=== PATIENT | female | born 1955 | race Caucasian/White ===

== ENCOUNTER 2017-05-05 23:09 | Observation (INO) | payer OTHER, SELFPAY ==
[2017-05-05 23:11] VITALS: BP 154/75; PULSE 95; RESP 22; TEMP 35.9; O2SAT 100; BMI 22.6
[2017-05-06] VITALS (13 sets, daily range): BP systolic 112–181; BP diastolic 55–99; PULSE 52–110; RESP 12–18; TEMP 36.4–37.1; O2SAT 94–100; BMI 22.7; BMI 22.8
[2017-05-06] MEDS: Ondansetron 4 MG/2 ML Vial IV ×2 (00:45→19:50)
[2017-05-06] MEDS: 0.9% Normal Saline 1,000 ML 1000 ML IV (00:45)
[2017-05-06 00:49] LABS: Absolute Lymphocyte Count 1.03 X10^3/ul (0.83-4.51); Absolute Neutrophil Count 10.4 X10^3/uL (2.0-7.7); Basophil# 0.01 X10^3/uL; Basophil% 0.1 % (0-1); Eosinophil# 0.01 X10^3/uL; Eosinophils% 0.1 % (0-5); Hematocrit 38.8 % (37-47); Hemoglobin 13.3 g/dl (12.0-15.0); Lymphocyte # 1.03 X10^3/ul (4.0); Lymphocyte % 8.6 % (19-41); Mean Corp Hgb Conc 34.3 g/gl (32-36); Mean Corpuscular Hgb 31.1 pg (27.0-32.0); Mean Corpuscular Volume 90.9 fL (81-99); Mean Platelet Vol. 10.8 fl (6.2-12.0); Neutrophil # 10.36 X10^3/uL (2.7-7.7); Platelet Count 256 K/mm3 (150-450); RBC Distribution Width CV 12.6 % (11.6-14.6); RBC Distribution Width SD 41.7 fl (35.1-43.9); Red Blood Count 4.27 M/mm3 (4.2-5.4)
[2017-05-06 00:53] LABS: POSITIVE COUNT NO; POSITIVE DIFFERENTIAL NO; POSITIVE MORPHOLOGY NO
[2017-05-06 00:59] LABS: ALB/GLOB Ratio 1.5 RATIO (0.9-2.4); AST(SGOT) 22 U/L (15-37); Alanine Aminotransfer ALT/SGPT 27 U/L (13-56); Albumin, Serum 4.3 g/dL (3.2-5.0); Alkaline Phosphatase 70 U/L (45-117); Anion Gap 21 (5-15); BUN 6 mg/dL (7-18); BUN/Creat Ratio 6.4 RATIO (10-20); Calcium,Total 9.7 mg/dL (8.5-10.1); Chloride 96 mmol/L (98-107); Creatinine, Serum 0.93 mg/dL (0.55-1.02); EST Glomerular Filtration Rate 64 mL/min (>60); Est Glom Filt Rate - Afr Amer 78 mL/min (>60); Estimated Creatinine Clearance 46.12 ml/min; Globulin 2.8 g/dL (2.2-4.2); Glucose 194 mg/dL (74-106); Lipase 65 U/L (73-393); Potassium 3.6 mmol/L (3.5-5.1); Protein, Total 7.1 g/dL (6.4-8.2); Sodium Level 132 mmol/L (136-145)
--- NOTE | 2017-05-06 02:14 | CT_ITS ---
STUDY: CT ABDOMEN AND PELVIS WITH CONTRAST REASON FOR EXAM: Female, 62 years old. Abdominal pain, vomiting and fever since 8:00 PM. Dizziness, recent weight loss, elevated WBC. Patient was to have cholecystectomy today. History of GERD, HLD, diverticulitis, appendectomy, hysterectomy. RADIATION DOSAGE (If Supplied By Facility): CTDIvol = ( 9.75 ) mGy, DLP = ( 414.29 ) mGycm TECHNIQUE: Transaxial 3.75 mm images were obtained from the dome of the diaphragm to the symphysis pubis without oral contrast. 100 ml of Isovue 300 contrast was administered. Sagittal and coronal images were reconstructed. Individualized dose optimization techniques were used for this CT. COMPARISON: None. FINDINGS: The visualized lung bases are unremarkable. The visualized portions of the heart are within normal limits. Normal liver. Distended gallbladder without visualized gallbladder wall thickening. There may be sludge. Normal extrahepatic biliary system. Normal spleen. Normal pancreas. Normal bilateral adrenal glands. Normal right kidney. Few millimeter low attenuation changes in the left renal cortex is too small to characterize and may represent tiny cysts. Normal visualized stomach. Normal small intestine. There are scattered predominantly sigmoid colonic diverticula consistent with diverticulosis. The transverse to rectal: Is decompressed, there is no overt wall thickness or pericolonic inflammation. There is non-visualization of the appendix. Normal abdominal aorta. Normal inferior vena cava. Normal retroperitoneum. Normal urinary bladder. There is absence of the uterus consistent with a prior hysterectomy. There is a small umbilical hernia containing fat. There are diffuse degenerative changes of the visualized lumbar spine and levoscoliosis of the lower lumbar spine CT/Abdomen/Pelvis W IV Cont ONLY IMPRESSION: There is no abscess, collection, perforation or obstruction. Scattered colonic diverticulosis with significant sigmoid diverticulosis. Decompressed colon, no overt diverticulitis detected. Acute gallbladder pathology not detected on submitted images. Suspect tiny left renal cysts, this can be verified with ultrasound as needed. Other nonacute findings as outlined above. Electronically Signed: Georgina Shetty MD at 5:07 EST , Service support ,
--- NOTE | 2017-05-06 03:18 | ED.VISSUMM ---
- ER Visit Summary Date of Service: 05/06/17 Chief Complaint: Nausea and vomiting History of Present Illness: The patient is a 62 F nausea vomiting since 8 PM last night. States followed by Dr. Davies, had a recent abnormal HIDA scan diagnosed from [facility]. Saw surgery and they are, referred over here due to hospital closure. States she ate baby food. She has a plan outpatient elective cholecystectomy for tomorrow. No fevers. Vomiting too many to count. No hematemesis. History of GERD and hypercholesterolemia. She has been cleared for surgery per patient. States she has had ongoing abdominal pain since January when symptoms started, symptoms in the upper epigastric region. History of hysterectomy. Physical Examination: General: Alert and oriented ?3, no acute distress HEENT: Normocephalic, atraumatic. Dry mucosa membranes Neck: supple, nontender. Cardiovascular: Regular rate and rhythm, no murmurs Respiratory: Normal breath sounds, symmetric, no distress Abdomen: Soft, mild tenderness epigastric and right upper quadrant without guarding or rebound nondistended. Negative McBurney's. Extremities: Nontender, no edema, pulses intact ?4 Neuro: no focal neurological deficits. Test Results: Labs with a white count of 12. Lipase 65, liver enzymes total bili 1.2. Creatinine 0.93. Emergency Department Course and Treatment: Patient given IV fluids, Zofran. Labs note a white count of 12, total bili 1.2. Symptoms improved with treatment. I did discuss with surgeon, Dr. Davies, states will admit for planned surgery tomorrow of her cholecystectomy due to her symptoms. He did request a CT with IV contrast for further evaluation due to her white count. Further discussion with the patient, her hysterectomy did include an appendectomy. She continued IV fluids, kept n.p.o. No vomiting since treatment. Any abnormal results will be relayed to surgery. Treatment Plan: [] Disposition: Admission Impression: 1. Nausea and vomiting 2. Abdominal pain 3. Reported abnormal HIDA This note was generated with [employer] dictation software. It may contain incorrect words, spelling, and punctuation that were not noted in review of the chart prior to signing ED Disposition - Plan for ED Patient: Disposition: Acute Care Hospital [facility] Chief Complaint: Nausea/Vomiting Diagnosis: Nausea and vomiting, Abdominal pain, Abnormal biliary HIDA scan
--- NOTE | 2017-05-06 03:22 | ED.DCSUM_ITS ---
- ER Visit Summary Date of Service: 05/06/17 Chief Complaint: Nausea and vomiting History of Present Illness: The patient is a 62 F nausea vomiting since 8 PM last night. States followed by Dr. Davies, had a recent abnormal HIDA scan diagnosed from [facility]. Saw surgery and they are, referred over here due to hospital closure. States she ate baby food. She has a plan outpatient elective cholecystectomy for tomorrow. No fevers. Vomiting too many to count. No hematemesis. History of GERD and hypercholesterolemia. She has been cleared for surgery per patient. States she has had ongoing abdominal pain since January when symptoms started, symptoms in the upper epigastric region. History of hysterectomy. Physical Examination: General: Alert and oriented ?3, no acute distress HEENT: Normocephalic, atraumatic. Dry mucosa membranes Neck: supple, nontender. Cardiovascular: Regular rate and rhythm, no murmurs Respiratory: Normal breath sounds, symmetric, no distress Abdomen: Soft, mild tenderness epigastric and right upper quadrant without guarding or rebound nondistended. Negative McBurney's. Extremities: Nontender, no edema, pulses intact ?4 Neuro: no focal neurological deficits. Test Results: Labs with a white count of 12. Lipase 65, liver enzymes total bili 1.2. Creatinine 0.93. Emergency Department Course and Treatment: Patient given IV fluids, Zofran. Labs note a white count of 12, total bili 1.2. Symptoms improved with treatment. I did discuss with surgeon, Dr. Davies, states will admit for planned surgery tomorrow of her cholecystectomy due to her symptoms. He did request a CT with IV contrast for further evaluation due to her white count. Further discussion with the patient, her hysterectomy did include an appendectomy. She continued IV fluids, kept n.p.o. No vomiting since treatment. Any abnormal results will be relayed to surgery. Treatment Plan: [] Disposition: Admission Impression: 1. Nausea and vomiting 2. Abdominal pain 3. Reported abnormal HIDA This note was generated with Pron[employer] dictation software. It may contain incorrect words, spelling, and punctuation that were not noted in review of the chart prior to signing ED Disposition - Plan for ED Patient: Disposition: Acute Care Hospital [facility] Chief Complaint: Nausea/Vomiting Diagnosis: Nausea and vomiting, Abdominal pain, Abnormal biliary HIDA scan
[2017-05-06] MEDS: Dextrose 5%-Lactated Ringers 1,000 ML 100 ML IV ×3 (03:31→18:25)
--- NOTE | 2017-05-06 07:59 | PCM.HP.STD ---
Problem List (1) Abdominal pain Status: Acute Qualifiers: Abdominal location: epigastric Qualified Code(s): R10.13 - Epigastric pain History of Present Illness Date of Admission: 05/06/17 The patient is a 62 year old F who has been seen by me previously. She was diagnosed with biliary dyskinesia with a very low ejection fraction of her gallbladder but no gallstones. She was scheduled for elective cholecystectomy on 05/06/2017. She reports the evening of she came down with nausea and vomiting and right upper quadrant and epigastric pain. She presented to the emergency room and she had an elevated white count as well as a slightly elevated bilirubin. She reports that the pain is improved this morning and she has not had any more nausea or vomiting. She complains of no other abdominal pain besides the right upper quadrant and epigastric pain. Past Medical History Allergies morphine Allergy (Unknown, Verified 05/05/17 08:21) Unknown penicillin G Allergy (Unknown, Verified 05/05/17 08:21) Unknown Sulfa (Sulfonamide Antibiotics) Allergy (Unknown, Verified 05/05/17 08:21) Unknown sulfamethoxazole [From Bactrim] Allergy (Unknown, Verified 05/05/17 08:21) Unknown trimethoprim [From Bactrim] Allergy (Unknown, Verified 05/05/17 08:21) Unknown egg Allergy (Verified 05/05/17 23:14) Unknown aspirin Adverse Reaction (Verified 05/05/17 08:21) Upset Stomach ciprofloxacin [From Cipro] Adverse Reaction (Verified 05/05/17 23:14) Rash peanut Adverse Reaction (Verified 05/05/17 23:14) Other Home Medications: Ambulatory Orders Medication Instructions Recorded Pantoprazole Sodium [Protonix] 40 mg PO DAILY 05/06/17 Surgical History: hysterectomy Smoking Status: Never smoker Alcohol: None Drugs: None - *Family History Maternal History Items: No pertinent history Review of Systems Constitutional: Denies: Anorexia, Fever HEENT: Denies: Difficulty Swallowing Cardiovascular: Denies: Chest Pain Respiratory: Denies: Shortness of Breath Gastrointestinal: Reports: Abdominal Pain - Right upper quadrant and epigastric pain., Constipation, Nausea. Denies: Vomiting Genitourinary: Denies: Dysuria Musculoskeletal: Denies: Joint Tenderness Skin: Denies: Dryness, Jaundice Psychiatric: Reports: Anxiety, Depression Hematologic/ Lymphatic: Denies: Anemia VTE Information - Inpt Only VTE Present on Admission: No VTE Mechan Device Prophylaxis: SCD's Patient Problems: Active and Suspected Problems (Last Updated 05/04/17 @ 14:11 by Hilary Varner) Nausea and vomiting (Acute) Abdominal pain (Acute) Abnormal biliary HIDA scan (Acute) - Physical Exam General: Alert, Oriented x3, Cooperative Oral: Moist Mucosa Neck: No JVD Lungs: Normal air movement Cardiovascular: Regular rate, Regular Rhythm Abdomen: Soft, Non-Distended, Tender - She does have some mild right upper quadrant tenderness but no guarding or rebound. Musculoskeletal: No Muscle Wasting Lymphatic: No Cervical, Supraclavicular, or Inguinal Adenopathy Neurological: Cranial nerves II-XII grossly intact Psych/Mental Status: Normal Affect Vital Signs Temp Pulse Resp BP Pulse Ox 98.3 F 80 18 142/55 H 100 05/06/17 03:25 05/06/17 03:25 05/06/17 03:25 05/06/17 03:25 05/06/17 03:25 Oxygen Delivery Method Room Air Weight: 120 lb 8 oz Body Mass Index (BMI) 22.7 Intake and Output for Last 24 Hours 05/04/17 05/05/17 05/06/17 23:59 23:59 23:59 Intake Total 343 / 343 Balance 343 / 343 Clinical Impression(s) from Imaging Studies Abdomen/Pelvis CT 05/06/17 02:14 IMPRESSION: There is no abscess, collection, perforation or obstruction. Scattered colonic diverticulosis with significant sigmoid diverticulosis. Decompressed colon, no overt diverticulitis detected. Acute gallbladder pathology not detected on submitted images. Suspect tiny left renal cysts, this can be verified with ultrasound as needed. Other nonacute findings as outlined above. Electronically Signed: Georgina Shetty MD at 5:07 EST , Service support , Assessment/Plan Active and Suspected Problems (Last Updated 05/04/17 @ 14:11 by Hilary Varner) Nausea and vomiting (Acute) Abdominal pain (Acute) Abnormal biliary HIDA scan (Acute) 62-year-old female with biliary dyskinesia 1. The patient was admitted and I did give her a dose of antibiotics yesterday in case she was developing a calculus acute cholecystitis. I performed a CT scan with IV contrast which did not show any other pathology in the abdomen. There was nonvisualization of the appendix but she does not have any right lower quadrant or umbilical pain. 2. Plan is to continue with laparoscopic cholecystectomy as planned this afternoon. Eric Davies MD Pager: [facility] [address] [place] [address] Office:
--- NOTE | 2017-05-06 08:02 | HP.PCM_ITS ---
Problem List (1) Abdominal pain Status: Acute Qualifiers: Abdominal location: epigastric Qualified Code(s): R10.13 - Epigastric pain History of Present Illness Date of Admission: 05/06/17 The patient is a 62 year old F who has been seen by me previously. She was diagnosed with biliary dyskinesia with a very low ejection fraction of her gallbladder but no gallstones. She was scheduled for elective cholecystectomy on 05/06/2017. She reports the evening of she came down with nausea and vomiting and right upper quadrant and epigastric pain. She presented to the emergency room and she had an elevated white count as well as a slightly elevated bilirubin. She reports that the pain is improved this morning and she has not had any more nausea or vomiting. She complains of no other abdominal pain besides the right upper quadrant and epigastric pain. Past Medical History Allergies morphine Allergy (Unknown, Verified 05/05/17 08:21) Unknown penicillin G Allergy (Unknown, Verified 05/05/17 08:21) Unknown Sulfa (Sulfonamide Antibiotics) Allergy (Unknown, Verified 05/05/17 08:21) Unknown sulfamethoxazole [From Bactrim] Allergy (Unknown, Verified 05/05/17 08:21) Unknown trimethoprim [From Bactrim] Allergy (Unknown, Verified 05/05/17 08:21) Unknown egg Allergy (Verified 05/05/17 23:14) Unknown aspirin Adverse Reaction (Verified 05/05/17 08:21) Upset Stomach ciprofloxacin [From Cipro] Adverse Reaction (Verified 05/05/17 23:14) Rash peanut Adverse Reaction (Verified 05/05/17 23:14) Other Home Medications: Ambulatory Orders Medication Instructions Recorded Pantoprazole Sodium [Protonix] 40 mg PO DAILY 05/06/17 Surgical History: hysterectomy Smoking Status: Never smoker Alcohol: None Drugs: None - *Family History Maternal History Items: No pertinent history Review of Systems Constitutional: Denies: Anorexia, Fever HEENT: Denies: Difficulty Swallowing Cardiovascular: Denies: Chest Pain Respiratory: Denies: Shortness of Breath Gastrointestinal: Reports: Abdominal Pain - Right upper quadrant and epigastric pain., Constipation, Nausea. Denies: Vomiting Genitourinary: Denies: Dysuria Musculoskeletal: Denies: Joint Tenderness Skin: Denies: Dryness, Jaundice Psychiatric: Reports: Anxiety, Depression Hematologic/ Lymphatic: Denies: Anemia VTE Information - Inpt Only VTE Present on Admission: No VTE Mechan Device Prophylaxis: SCD's Patient Problems: Active and Suspected Problems (Last Updated 05/04/17 @ 14:11 by Hilary Varner ) Nausea and vomiting (Acute) Abdominal pain (Acute) Abnormal biliary HIDA scan (Acute) - Physical Exam General: Alert, Oriented x3, Cooperative Oral: Moist Mucosa Neck: No JVD Lungs: Normal air movement Cardiovascular: Regular rate, Regular Rhythm Abdomen: Soft, Non-Distended, Tender - She does have some mild right upper quadrant tenderness but no guarding or rebound. Musculoskeletal: No Muscle Wasting Lymphatic: No Cervical, Supraclavicular, or Inguinal Adenopathy Neurological: Cranial nerves II-XII grossly intact Psych/Mental Status: Normal Affect Vital Signs Temp Pulse Resp BP Pulse Ox 98.3 F 80 18 142/55 H 100 05/06/17 03:25 05/06/17 03:25 05/06/17 03:25 05/06/17 03:25 05/06/17 03:25 Oxygen Delivery Method Room Air Weight: 120 lb 8 oz Body Mass Index (BMI) 22.7 Intake and Output for Last 24 Hours 05/04/17 05/05/17 05/06/17 23:59 23:59 23:59 Intake Total 343 / 343 Balance 343 / 343 Clinical Impression(s) from Imaging Studies Abdomen/Pelvis CT 05/06/17 02:14 IMPRESSION: There is no abscess, collection, perforation or obstruction. Scattered colonic diverticulosis with significant sigmoid diverticulosis. Decompressed colon, no overt diverticulitis detected. Acute gallbladder pathology not detected on submitted images. Suspect tiny left renal cysts, this can be verified with ultrasound as needed. Other nonacute findings as outlined above. Electronically Signed: Georgina Shtety MD at 5:07 EST , Service support , Assessment/Plan Active and Suspected Problems (Last Updated 05/04/17 @ 14:11 by Hilary Varner ) Nausea and vomiting (Acute) Abdominal pain (Acute) Abnormal biliary HIDA scan (Acute) 62-year-old female with biliary dyskinesia 1. The patient was admitted and I did give her a dose of antibiotics yesterday in case she was developing a calculus acute cholecystitis. I performed a CT scan with IV contrast which did not show any other pathology in the abdomen. There was nonvisualization of the appendix but she does not have any right lower quadrant or umbilical pain. 2. Plan is to continue with laparoscopic cholecystectomy as planned this afternoon. Eric Davies MD Pager: [facility] [address], [address] [place] [address] Office:
[2017-05-06] MEDS: Pantoprazole Sodium 40 MG Tablet PO (08:09)
--- NOTE | 2017-05-06 13:50 | EKG12_ITS ---
Test Reason : PRE OP Blood Pressure : / mmHG Vent. Rate : 069 BPM Atrial Rate : 069 BPM P-R Int : 142 ms QRS Dur : 072 ms QT Int : 448 ms P-R-T Axes : 068 009 -07 degrees QTc Int : 480 ms Normal sinus rhythm Nonspecific ST and T wave abnormality Prolonged QT Abnormal ECG Confirmed by JARON RODRÍGUEZ, MAINOR ([id number]), avid editor ZAHRAA MARROQUIN ([id number]) on 05/08/2017 1:47:18 PM Referred By: UBALDO Confirmed By:MAINOR SALMERON MD
--- NOTE | 2017-05-06 14:05 | OM_PTH ---
PATIENT: LEONOR LEZAMA LOC: MS2 U#:[id number] AGE/SX: 62/F ROOM: MS219 RE05/06/[address]: Dr. Eric Davies MD : [id number] BED: 1 DIS: 05/07/2017 SPEC #: [id number] RECD: 05/06/17 18:08 STATUS: DAMON MYRA #: [id number] WAGNER: 05/06/17 14:[address]: Eric Davies DEPT: SURGICAL PATHOLOGY RECD BY: Mike Phan ENTERED: 05/07/17 11:06 SP TYPE: OMENTUM OTHR DR: Dr. Willam Yanez MD Tissues: A - Omentum, NOS B - Gallbladder, NOS Procedures: Surgery Specimen Level III Surgery Specimen Level IV HEADER OPERATION: Laparoscopic cholecystectomy with intraoperative cholangiogram PRE-OP DIAGNOSIS: Biliary dyskinesia TISSUE SUBMITTED: A ? Omental nodule, B - Gallbladder MICROSCOPIC DIAGNOSIS A. Omental nodule: A piece of mature adipose tissue with congestion, hemorrhage and reactive changes. B. Gallbladder: Mild chronic cholecystitis. No stones are identified in the container or in the gallbladder. KATIE:davide 05/08/17 MICROSCOPIC DESCRIPTION Slides are reviewed. GROSS DESCRIPTION A - Received in fixative is one container labeled with the patient's name and designated omental nodule. The specimen consists of a piece of hemorrhagic soft tissue measuring 1 x 0.5 x 0.2 cm. The entire specimen is submitted in one cassette. B - Received is one container labeled with the patient's name and designated gallbladder. The specimen consists of a gallbladder measuring 11 cm in length and up to 3.5 cm in diameter. The external surface is pink-whitmore, smooth and glistening for the most part. Focally it is granular, hemorrhagic and contains cautery artifact. The gallbladder contains green-yellow mucoid bile. No stones are identified in the container or in the gallbladder. The mucosa is bile-stained and without any mass lesions. The gallbladder wall measures 0.1 cm in thickness. Gallery Director sections from the gallbladder and the cystic duct are submitted in one cassette. / KATIE:davide 05/07/17 TC:3 CPT: 24487, 55503
[2017-05-06] MEDS: Bupivacaine 0.25% 30 ML Vial (14:43)
--- NOTE | 2017-05-06 15:17 | OP.PCM_ITS ---
Problem List (1) Abdominal pain Status: Acute Qualifiers: Abdominal location: epigastric Qualified Code(s): R10.13 - Epigastric pain Report of Operation Date of Procedure: 05/06/17 Pre-Operative Diagnosis: Biliary dyskinesia Post-Operative Diagnosis: Same Surgery/Procedure Performed:: Laparoscopic cholecystectomy with cholangiogram Specimen's removed: 1. Omental nodule. 2. Gallbladder Description of Procedure: After obtaining informed consent patient was brought back to the operating room. General anesthesia was induced. The abdomen was prepped and draped in usual sterile fashion. A small midline incision was made superior to the umbilicus and deepened to the level of fascia. The fascia was elevated and incised. Next the peritoneum was elevated and incised in the same fashion. Finger sweep was performed and the Adan trocar was placed into the abdomen. The balloon was inflated. The abdomen was inflated to 15 mmHg. Next a camera was introduced into the abdomen and the abdomen was inspected. Next under direct visualization three 5-mm ports were placed one subxiphoid and 2 subcostal. The patient had a soft small soft omental nodule which appeared to be possible endometriosis. This was removed from the omentum and sent for pathology. Next the gallbladder was elevated and retracted toward the right shoulder. The peritoneum was stripped from the gallbladder. The infundibulum was located and retracted laterally. Next the triangle of Calot was dissected and the cystic duct and cystic artery were identified. Cholangiograms were performed. The Deiv catheter was used to clamp across the infundibulum and the needle was inserted into the gallbladder. Under fluoroscopy contrast was instilled into the gallbladder and the common duct, cystic duct as well as proximal hepatic ducts were identified. There was good filling of the duodenum. There were no filling defects noted in the common bile duct. The clamp was removed as well as the needle and the infundibulum was grasped once more. Three hemolock clips were placed across the cystic duct. The cystic duct was then divided leaving 2 clips on the stump. The cystic artery was clipped and divided in the same fashion. The hook cautery was then used to take the gallbladder off of the gallbladder bed. Hemostasis was obtained. Gallbladder fossa was irrigated and no active bleeding or bile leakage was noted. Next the camera switched to a 5 mm camera and introduced in the subxiphoid port. An Endopouch bag was placed through the umbilical port and the gallbladder was placed into it. The gallbladder was then removed through the umbilical incision. The camera was then reinserted through the umbilical port. The gallbladder fossa was inspected once more and noted to be hemostatic with no leaking bile. The abdomen was suctioned dry the 5 mm ports were removed under direct visualization. The umbilical port was then removed and the air was removed from the abdomen. Next using an 0 Vicryl suture the umbilical fascia was closed in a [id number] fashion. The umbilical port site was irrigated local anesthetic was administered to all the incisions. All the incisions were closed subcuticular 4-0 Monocryl sutures followed by Steri- Strips and dressings. The patient was awoken and taken to PACU in stable condition. - Admit VTE Documentation VTE Mechan Device Prophylaxis: SCD's
--- NOTE | 2017-05-06 15:17 | PCM.DC.GB ---
Discharge Diet: Light diet - advance as tolerated Discharge Activity: Return to Normal Activity, May Not Drive - for 2-3 days or while taking narcotic pain medicataions., - - Do not drive, work heavy equipment or sign legal documents for 24 hours. May shower in (days): 1 - with the bandage in place. Additional Activity Instructions:: Pain medication may cause nausea. You should typically eat light foods as you take your pain medications. Pain medication may also cause constipation. If this is a problem for you, please discuss with your doctor. Call your doctor if your incision/area has: Continuous Slow Oozing, Sudden Increased Bleeding, Increased Pain/ Swelling, Increased Redness, Foul Smelling Discharge, Fever of 101 or Higher Call your doctor if you observe: Fever of 101 or Higher Suture Line Care: Avoid Pulling/Pushing, Avoid Pinching/Bending Additional Dressing/Incision Instructions:: Leave operative bandaids on for 2 days. When you remove dressing, leave Steri-Strips on until your follow-up appointment, or until the Steri-Strips fall off on their own. Allergies/Adverse Reactions: Allergies morphine Allergy (Unknown, Verified 05/05/17 08:21) Unknown penicillin G Allergy (Unknown, Verified 05/05/17 08:21) Unknown Sulfa (Sulfonamide Antibiotics) Allergy (Unknown, Verified 05/05/17 08:21) Unknown sulfamethoxazole [From Bactrim] Allergy (Unknown, Verified 05/05/17 08:21) Unknown trimethoprim [From Bactrim] Allergy (Unknown, Verified 05/05/17 08:21) Unknown egg Allergy (Verified 05/05/17 23:14) Unknown aspirin Adverse Reaction (Verified 05/05/17 08:21) Upset Stomach ciprofloxacin [From Cipro] Adverse Reaction (Verified 05/05/17 23:14) Rash peanut Adverse Reaction (Verified 05/05/17 23:14) Other Medications to take at Discharge Oxycodone HCl/Acetaminophen [Percocet 5/325] 1 - 2 tablet PO Q4H PRN PRN 7 Days #30 tablet 05/06/17 Pantoprazole Sodium [Protonix] 40 mg PO DAILY 05/06/17 The following prescriptions were given: Oxycodone HCl/Acetaminophen [Percocet 5/325] 1 - 2 tablet PO Q4H PRN PRN 7 Days #30 tablet PRN Reason: Pain Primary Care Physician: Willam Yanez [Primary Care Provider] - Please Follow Up With: Eric Davies MD When: call tomorrow to make 2 week follow up appt [phone]
--- NOTE | 2017-05-06 15:19 | DS.PCM_ITS ---
Discharge Date and Diagnosis Date of Admission: 05/06/17 Date of Discharge: 05/07/17 - Primary Discharge Diagnosis Active and Suspected Problems (Last Updated 05/04/17 @ 14:11 by Hilary Varner ) Nausea and vomiting (Acute) Abdominal pain (Acute) Abnormal biliary HIDA scan (Acute) Hospital Course and Treatment Imaging Results: Clinical Impression(s) from Imaging Studies Abdomen/Pelvis CT 05/06/17 02:14 IMPRESSION: There is no abscess, collection, perforation or obstruction. Scattered colonic diverticulosis with significant sigmoid diverticulosis. Decompressed colon, no overt diverticulitis detected. Acute gallbladder pathology not detected on submitted images. Suspect tiny left renal cysts, this can be verified with ultrasound as needed. Other nonacute findings as outlined above. Electronically Signed: Georgina Shetty MD at 5:07 EST , Service support , Operations: [email or web address] Procedures: None Summary of Care Provided: The patient is a 62 year old F who was admitted for nausea and vomiting. She was scheduled for an elective cholecystectomy for biliary dyskinesia anyway so she was admitted to the hospital and taken the following day for laparoscopic cholecystectomy. A CT scan was performed upon admission which was normal. The patient was started on antibiotics in case there is any element of acute cholecystitis but during surgery there is no inflammation noted. She had a cholangiogram during surgery. The cholangiogram showed a possible tiny stricture at the distal common bile duct there is free flow of contrast through this and the LFTs were normal. The patient had no gallstones in her gallbladder so I doubt the patient had any choledocholithiasis. The patient was admitted to the floor postoperatively and started on a diet. She did have nausea first night but the following day she was tolerating a diet and p.o. pain medications and was discharged home in stable condition. Discharge Diet: Light diet - advance as tolerated Discharge Activity: Return to Normal Activity, May Not Drive - for 2-3 days or while taking narcotic pain medicataions., - - Do not drive, work heavy equipment or sign legal documents for 24 hours. May shower in (days): 1 - with the bandage in place. Additional Activity Instructions:: Pain medication may cause nausea. You should typically eat light foods as you take your pain medications. Pain medication may also cause constipation. If this is a problem for you, please discuss with your doctor. Call your doctor if your incision/area has: Continuous Slow Oozing, Sudden Increased Bleeding, Increased Pain/ Swelling, Increased Redness, Foul Smelling Discharge, Fever of 101 or Higher Call your doctor if you observe: Fever of 101 or Higher Suture Line Care: Avoid Pulling/Pushing, Avoid Pinching/Bending Additional Dressing/Incision Instructions:: Leave operative bandaids on for 2 days. When you remove dressing, leave Steri-Strips on until your follow-up appointment, or until the Steri-Strips fall off on their own. Home Medications: Medications to take at Discharge Oxycodone HCl/Acetaminophen [Percocet 5/325] 1 - 2 tablet PO Q4H PRN PRN 7 Days #30 tablet 05/06/17 Pantoprazole Sodium [Protonix] 40 mg PO DAILY 05/06/17 Following Prescrptions Were Given to Patient: Oxycodone HCl/Acetaminophen [Percocet 5/325] 1 - 2 tablet PO Q4H PRN PRN 7 Days #30 tablet PRN Reason: Pain Primary Care Physician: Willam Yanez [Primary Care Provider] - Please Follow Up With: Eric Davies MD When: call tomorrow to make 2 week follow up appt [phone] Meaningful Use Info Meaningful Use Diagnoses (Choose all that apply): None applicable
--- NOTE | 2017-05-06 15:58 | SUR.PHASEI ---
BP = 136/84 FIVE MINUTES AFTER LABETALOL 5 MG IV GIVEN.
[2017-05-07] MEDS: oxyCODONE 5 MG Tablet PO ×2 (00:03→10:49)
[2017-05-07] MEDS: Acetaminophen 325 MG Tablet 650 MG PO (02:00)
[2017-05-07] MEDS: Ondansetron 4 MG/2 ML Vial IV ×2 (02:19→10:40)
[2017-05-07 04:00] VITALS: BP 121/72; PULSE 60; RESP 16; TEMP 36.7; O2SAT 96
[2017-05-07] MEDS: Dextrose 5%-Lactated Ringers 1,000 ML 100 ML IV (04:36)
[2017-05-07 08:10] VITALS: O2SAT 95
[2017-05-07 10:00] VITALS: BP 117/68; PULSE 78; RESP 16; TEMP 36.4; O2SAT 99
[2017-05-07] MEDS: Pantoprazole Sodium 40 MG Tablet PO (10:39)
== END 2017-05-07 14:55 | disposition home or self-care (01) ==
LOC: ED 05-06 02:31 → MS2 05-06 02:32
PROVIDERS: Admitting Provider Surgery; Emergency Provider Emergency Medicine; Family Provider Internal Medicine Adolescent Medicine; PCP Internal Medicine Adolescent Medicine; Visit Provider Surgery
PROC: (CPT 47610; principal; 2017-05-06 13:45)
DX: K81.1 Chronic cholecystitis (principal); E78.00 Pure hypercholesterolemia, unspecified; K21.9 Gastro-esophageal reflux disease without esophagitis; R94.8 Abnormal results of function studies of other organs and systems; Z79.899 Other long term (current) drug therapy; K44.9 Diaphragmatic hernia without obstruction or gangrene
CPT/HCPCS: 47563; 74177; 74300; 76000; 80053; 83690; 85025; 88304; 88305; 93005; 96361; 96365; 96366; 96375; 96376; 99218; 99282; J7030; J7120; Q9967; A4216; G0378; J2405